=== PATIENT | male | born 1980 | race Caucasian/White ===

== ENCOUNTER 2019-10-05 19:31 | Emergency (ER) | payer SELFPAY ==
[~2019-10-05] VITALS: Ht 182.9 cm; Wt 97.5 kg
[2019-10-05 19:36] VITALS: Ht 182.9 cm; Wt 97.5 kg
[2019-10-05 19:54] LABS: BASOPHIL % 0.1 % (0-2); PLATELET COUNT 354 x10^3mcL (130-400); RED CELL DISTRIBUTION WIDTH 12.7 % (11.5-14.5)
[2019-10-05 20:00] LABS: CARBON DIOXIDE 24.2 mmol/L (21-32); CHLORIDE SERUM 102 mmol/L (98-107); CREATININE SERUM 0.8 mg/dL (0.7-1.3); GFR1 > 60 mL/min; GLUCOSE SERUM 122 mg/dL (74-106); POTASSIUM SERUM 4.1 mmol/L (3.5-5.1); SODIUM SERUM 141 mmol/L (136-145)
[2019-10-05 20:05] LABS: ALBUMIN 4.3 g/dL (3.4-5.0); ALKALINE PHOSPHATASE 224 U/L (46-116); ALT/SGPT 75 U/L (16-63); AST/SGOT 36 U/L (15-37); BILIRUBIN TOTAL 2.56 mg/dL (0.20-1.00)
[2019-10-05 20:06] LABS: TOTAL PROTEIN, SERUM 8.5 g/dL (6.4-8.2)
[2019-10-05 21:30] VITALS: BP 150/93
== END 2019-10-05 21:30 | disposition other institution (70) ==
LOC: ED 19:31
PROVIDERS: Emergency Medicine
DX: F10.239 Alcohol dependence with withdrawal, unspecified (principal); I10 Essential (primary) hypertension; Y90.9 Presence of alcohol in blood, level not specified
CPT/HCPCS: J2060; J7030; Q0092

== ENCOUNTER 2019-10-05 19:31 | Emergency (ER) | payer OTHER | END 2019-10-05 21:30 | disposition other institution (70) | LOC: ED 19:31 | DX: Z02.89 Encounter for other administrative examinations (principal) ==